=== PATIENT | female | born 1955 | race Caucasian/White ===

== ENCOUNTER 2023-06-22 19:05 | Emergency (ER) | payer BC, SELFPAY ==
[2023-06-22 19:09] VITALS: BP 121/96; BMI 23.4
--- NOTE | 2023-06-22 22:52 | ED.MUSCINJ ---
HPI-Injury
General
Chief Complaint: Extremity Pain (non-traumatic)
Source: patient
Exam Limitations: none
Time Seen by Provider: 06/22/23 20:15
Nursing documentation reviewed up to this point in time: agreed with
Travel History
Have you had any contact with someone who has COVID-19?: No
Do you have any symptoms of coronavirus? Fever > 100 degrees, chills, cough, shortness of breath, sore throat, loss of taste or smell, muscle aches, or headache?: No
History of Present Illness-Injury
Is this injury a work related problem?: No
Is pt an associate of [facility]?: No
Initial Injury comments:
Patient to ED with complaint of pain to right posterior knee. No history of trauma. No fever/chills, recent illness. No prior history of same. Sent to ED by PCP to r/o DVT. No history of DVT
Past History
Past History
ED Past Medical History: Arrthythmia and Asthma
ED Past Surgical History: None
Review of Systems
Review of Systems
Allergies reviewed?: Yes
All Other Systems: ROS reviewed and negative except as documented in HPI and ROS
Constitutional: Reports no symptoms
EENT: Reports no symptoms
Respiratory: Reports no symptoms
Cardiac: Reports no symptoms
ABD/GI: Reports no symptoms
Musculoskeletal: Reports other (right calf pain)
Skin: Reports no symptoms
Neurological: Reports no symptoms
Psychiatric: Reports no symptoms
Musculoskeletal Injury Exam
Musculoskeletal Injury Exam
Right Calf:
Pain with Movement?: Mild
Tender to palpation?: None
Soft tissue swelling?: None
External deformity and angulation?: None
Joint effusion?: None
Contusion?: None
Hematoma-local bleeding into tissue?: None
Crepitus with movement?: No
Joint instability?: No
Malalignment/deformity?: No
Range of motion: Full
Distal skin color and temperature: normal-warm & good color
Capillary Refill: normal
Phy Exam
General Physical Exam
General Presentation: well appearing and no apparent distress
General age: appears stated age
General Skin: warm and dry
General Habitus: normal
General Mental: alert
General Hydration: appears well hydrated
Musculoskeletal Exam
Musculoskeletal Exam: full ROM and neuro vasc intact
Skin Exam
Skin Exam: normal color, warm/dry and no rash
Psychiatric Exam
Psychiatric Exam: normal mood/affect
Injury Course
Orders/Labs/Results
Orders:
Orders
06/22/23 19:08
Periph Venous Lwr Ext Rt US [US Periph Venous LOWER Ext RT] Urgent
Comment:
Reason For Exam: RLE swelling/pain
06/22/23 20:45
Tremaine Wrap Right-Treatment ONCE
*Radiology
Radiology exam reviewed: radiology read reviewed
*Pulse Oximetry
Patient hypoxic: no
*Critical Care Note
Total Time (30-74mins, 75-104mins- exclusive of procedures): Not Applicable
ED Attending Note
-
Portions of this chart may have been created with voice recognition software.� Occasional wrong word or��sound alike� substitutions may have occurred due to the inherent limitations of voice recognition software.
Discharge Plan
Departure
Patient Disposition: Home (Routine Discharge)
Date of Disposition: 06/22/23
Time of Disposition: 20:43
Patient with high blood pressure during this ER visit?: No
Condition: Good
Covid-19: Not Applicable
Discharge Problem:
Posterior knee pain
Instructions: Musculoskeletal Pain, RICE Therapy
Prescriptions:
No Action
ascorbic acid (vitamin C) [Vitamin C] 500 MG tablet
2,000 mg PO DAILY
biotin 10,000 MCG capsule
10,000 mcg PO DAILY
montelukast 10 MG tablet
10 mg PO DAILY
diltiazem HCl 60 MG tablet
120 mg PO DAILY
L. acidophilus/Bifid. animalis [Probiotic] 1 EACH capsule, sprinkle
1 cap PO DAILY
Klovetasol Hair Cream
topical .Q 48H
Patient Comments:
3 times a week for hair loss
Vitamin B Complex
150 mg PO DAILY
Vitamin D
125 mcg PO DAILY
magnesium hydroxide 30 ML suspension
30 ml PO DAILYPRN PRN (Reason: constipation) 0RF
cyanocobalamin (vitamin B-12) 1,000 MCG tablet
500 mcg PO DAILY
diazepam 5 MG tablet
5 mg PO HS PRN (Reason: anxiety)
Patient Comments:
last taken in November
magnesium, potassium aspartate 1 EACH capsule
1 ea PO DAILY
oxycodone 5 MG tablet
5 mg PO Q4HPRN PRN (Reason: moderate-severe pain) Qty: 30 0RF
Rx Instructions:
1 tab moderate pain or 2 if pain severe
Dx total joint replacement
ongoing therapy
Referrals:
Brian Romano MD [Active] - (Follow up if your symptoms do not improve over the next 5-7 days.)
Stand Alone Forms: Return to Work
Interventions
Interventions:
*Risk Screen - Suicide Last Done: 06/22/23 19:09
*General Assessment Last Done: 06/22/23 20:38
*Neglect/Abuse Screening Last Done: 06/22/23 19:09
*ED COVID-19 Vaccine History Last Done: 06/22/23 19:09
*Nursing Disposition Last Done: 06/22/23 20:55
ED-Skin Assessment Last Done: 06/22/23 20:38
ED-Peripheral Vascular Assessment Last Done: 06/22/23 20:38
ED-Musculoskeletal Assessment Last Done: 06/22/23 20:38
Discharge Date and Time
Discharge Date/Time: 06/22/23 21:01
Print Language: MOROCCAN
== END 2023-06-22 21:01 | disposition home or self-care (01) ==
LOC: EMR 19:05
PROVIDERS: EMERGENCY PHYSICIAN Emergency Medicine; FAMILY PHYSICIAN Family Medicine
DX: M25.561 Pain in right knee (principal); J45.909 Unspecified asthma, uncomplicated
CPT/HCPCS: 99284; 93971

== ENCOUNTER → 2025-01-01 08:47 | Outpatient (REF) | payer BC, SELFPAY | LOC: RCS 08:47 | PROVIDERS: ATTENDING PHYSICIAN Internal Medicine Cardiovascular Disease; FAMILY PHYSICIAN Family Medicine | DX: R07.89 Other chest pain (principal) | CPT/HCPCS: 93017; 93350 ==

== ENCOUNTER → 2025-01-14 09:17 | Outpatient (REF) | payer BC, SELFPAY | LOC: HWRCS 09:17 | PROVIDERS: ATTENDING PHYSICIAN Internal Medicine Cardiovascular Disease; FAMILY PHYSICIAN Family Medicine | DX: I48.0 Paroxysmal atrial fibrillation (principal) | CPT/HCPCS: 93306 ==